=== PATIENT | female | born 1965 | race Caucasian/White ===

== ENCOUNTER 2017-11-13 07:42 | Day surgery (SDC) | payer OTHER ==
[2017-11-09 13:44] VITALS: BMI 24.0
[2017-11-13] MEDS ORDERED: MIDAZOLAM HCL 2 MG/2 ML SINGLE DOSE VIAL ONE (09:23)
[2017-11-13] MEDS ORDERED: LIDOCAINE 1%/EPI 1:100000 (20 ML MULTI DOSE VIAL) ONE ×2 (09:42→09:48)
[2017-11-13] MEDS ORDERED: LIDOCAINE 1%/EPI 1:100000 (50 ML MULTI DOSE VIAL) INF ONE ×2 (10:22)
[2017-11-13] MEDS ORDERED: DESFLURANE GAS 240 ML BOTTLE IH ONE (11:13)
[2017-11-13] MEDS ORDERED: ONDANSETRON 4 MG/2 ML VIAL ONE (12:41)
[2017-11-13] MEDS ORDERED: oxyCODONE HCL 5 MG TABLET PO PRN (12:43)
[2017-11-13] MEDS ORDERED: ONDANSETRON 4 MG/2 ML VIAL IVPUSH PRN (12:43)
[2017-11-13] MEDS ORDERED: LACTATED RINGERS SOLUTION 1,000 ML IV SCH (12:45)
[2017-11-13 13:40] VITALS: TEMP 98.2
[2017-11-13] MEDS ORDERED: oxyCODONE HCL 5 MG TABLET ONE (14:28)
[2017-11-13 14:39] VITALS: BP 126/74; PULSE 78
--- NOTE | 2017-11-16 20:26 | OP ---
DATE OF OPERATION: 11/13/2017 SURGEON: Kemal Collins M.D. STOCK PULLER SURGEON: Sandra Hagan PREOPERATIVE DIAGNOSIS: 1. Bilateral acquired chest wall deformity status post bilateral breast surgery for cancer. 2. Asymmetry of chest wall post mastectomy. POSTOPERATIVE DIAGNOSIS: 1. Bilateral acquired chest wall deformity status post bilateral breast surgery for cancer. 2. Asymmetry of chest wall post mastectomy. OPERATIVE PROCEDURE: 1. Right breast reduction mammoplasty. 2. Left breast reduction mammoplasty. OPERATIVE INDICATION: Patient is a 52-year-old young woman who underwent breast surgery for cancer. She now presents with a gross asymmetry of the chest wall, requiring the above procedures. The risks and benefits, surgical versus nonsurgical alternatives, as well as material complications of the procedures were described in multiple detail to the patient on multiple occasions including today in the holding area, where she was marked in the standing position for outline of procedure, incision, scars, and discussion. OPERATIVE PROCEDURE IN DETAIL: The patient was taken to the operating room, and after induction of general anesthesia in the supine position, both arms are extended and padded, Venodyne boots are placed, and the markings which were made in the standing position were reconfirmed on the chest wall. At this point 0.5% local lidocaine anesthesia with 1:100,000 epinephrine was injected into the areas of the planned incision for reduction pattern procedure. Using a number 42 nipple areolar cutter, the nipple areolar complex was circumscribed on both sides, and then incisions were made around the nipple areolar complex excising skin and tissue around this area. A Black type pattern incision using SPAIR technique were carried out, excising blocks of tissue on the right and left sides. The right side showed a much smaller breast after previous radiation therapy for breast cancer and a block of tissue was removed mostly from the lateral side of the breast to symmetrize the breast itself. Incisions were then made on the left side according to the pattern with SPAIR technique incising the tissue, and all tissues were sent for pathologic diagnosis independently to rule out breast cancer. These blocks of tissue were spent, and hemostasis was meticulously obtained throughout the procedure, copious irrigation was performed, and then the pedicle was tacked into position on both sides symmetrically using 2-0 Vicryl sutures to centralize the pedicle on both sides, and then multiple sutures were placed in order to approximate this reconstructive tissue. The skin and subcutaneous tissue was advanced and closed in tailor tack fashion in order to symmetry create both breasts. Incisions were closed with deep 2-0 Vicryl sutures on the deep tissue, 3-0 Biosyn in the subdermal tissue, and 4-0 Biosyn in a subcuticular fashion. Patient was placed in the sitting semi-Celestin position for symmetry, and both sides showed good symmetry equally. She tolerated procedure well. Both wounds were dressed, all wounds were dressed with Dermabond, Steri-Strips, and a compressive dressing. She was awakened, extubated, and transferred to recovery room in a Surgi-Bra, and tolerated procedure well. KEMAL COLLINS M.D. [id number]
--- NOTE | 2017-11-18 15:17 | PATH ---
Surgical Pathology Report Patient Name: UGO SCHMIDT Med. Rec. #: [id number] /Age/Gender: 1965 (Age: 52) / F Account: [id number] Location: [facility] Taken: 11/13/2017 Received: 11/13/2017 Reported: 11/18/2017 Physicians: John Collins Specimen(s) Received A: RIGHT BREAST TISSUE B: LEFT BREAST TISSUE Clinical History History of breast cancer Final Diagnosis A. BREAST TISSUE, RIGHT, EXCISION: BENIGN BREAST TISSUE. SKIN WITH NO PATHOLOGIC FINDINGS. B. BREAST TISSUE, LEFT, EXCISION: BENIGN BREAST TISSUE. SKIN WITH NO PATHOLOGIC FINDINGS. Electronically Signed Grecia Wasserman M.D. Gross Description A. Received in formalin labeled "right breast tissue," is a 61 g, 11.0 x 7.5 x 1.8 cm aggregate of multiple irregular, unoriented portions of fibroadipose tissue and reese, unremarkable skin. Sectioning reveals foci of white fibrous tissue. 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 B. Received in formalin labeled "left breast tissue," is a 265 g, 12.0 x 10.5 x 4.3 cm aggregate of multiple irregular, unoriented portions of fibroadipose tissue and reese, unremarkable skin. Sectioning reveals foci of white fibrous tissue. 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 11/16/2017 saudi11/16/2017
== END 2017-11-13 15:20 | disposition home or self-care (01) ==
LOC: FASU 07:42
PROVIDERS: ATTEND Plastic Surgery
PROC: 0HBV0ZZ Excision of Bilateral Breast, Open Approach (ICD-10-PCS; principal; 2017-11-13 10:23)
DX: M95.4 Acquired deformity of chest and rib (principal); N65.1 Disproportion of reconstructed breast; Z85.3 Personal history of malignant neoplasm of breast; Z90.13 Acquired absence of bilateral breasts and nipples
CPT/HCPCS: 84703; 88305-TC